=== PATIENT | female | born 1995 | race Caucasian/White ===

== ENCOUNTER 2023-06-13 15:07 | Emergency (ER) | payer OTHER ==
[2023-06-13 15:53] VITALS: BP 122/78; PULSE 85; RESP 18; TEMP 97.8; BMI 23.0
[2023-06-13] MEDS ORDERED: ACETAMINOPHEN 500 MG TABLET (FP) PO ONE (16:28)
[2023-06-13] MEDS ORDERED: IBUPROFEN 600 MG TABLET (FP) PO ONE ×2 (16:28→16:33)
[2023-06-13] MEDS ORDERED: ACETAMINOPHEN 500 MG TABLET (FP) ONE (16:33)
== END 2023-06-13 17:01 | disposition home or self-care (01) ==
LOC: JER 15:07 → JERFT 15:07
DX: S93.402A Sprain of unspecified ligament of left ankle, initial encounter (principal); M25.572 Pain in left ankle and joints of left foot; M25.472 Effusion, left ankle; W16.112A Fall into natural body of water striking water surface causing other injury, initial encounter; Y93.89 Activity, other specified; Y92.89 Other specified places as the place of occurrence of the external cause
CPT/HCPCS: 73610-TC-LT-FY; 73630-TC-LT; 99283-25